=== PATIENT | male | born 1975 ===

== ENCOUNTER 2019-08-08 15:04 | Emergency (ER) | payer SELFPAY ==
[~2019-08-08 15:04] MED LIST: Iopamidol-370 76% 500 ML 1 ML ONE
[2019-08-08 15:35] LABS: #Basophils 0.1 thou/uL (0.0-0.2); #Eosinphils 0.1 thou/uL (0.0-0.7); #Lymphocytes 2.5 thou/uL (1.20-3.40); #Neutrophils 10.5 thou/uL (1.40-6.50); %Basophils 0.6 % (0.0-1.0); %Eosinophils 0.4 % (0.0-10.0); %Neutrophils 74.1 % (42.0-75.0); Hemoglobin 16.2 g/dL (12.0-16.0); Mean Corpuscular HGB CONC 34.3 g/dL (32.0-36.0); Mean Corpuscular Hemoglobin 31.2 pg (27.0-31.0); Mean Platelet Volume 8.1 fL (7.4-10.4); Platelet Count 322 thou/uL (130-400); RBC Distribution Width 11.3 % (11.5-14.5); Red Blood Cell (RBC) Count 5.21 mill/uL (4.20-5.40); White Blood Cell (WBC) Count 14.1 thou/uL (4.8-10.8)
[2019-08-08 15:56] LABS: ALT (SGPT) 29 U/L (8-55); AST (SGOT) 21 U/L (5-34); Albumin 4.3 g/dL (3.5-5.0); Alkaline Phosphatase 59 U/L (40-110); Anion Gap 15 mmol/L (10-20); BUN (Urea Nitrogen) 15 mg/dL (7.0-18.7); Bilirubin, Total 0.4 mg/dL (0.2-1.2); Calc. Creatinine Clearance 0 mL/min (70-130); Calcium 9.5 mg/dL (7.8-10.44); Carbon Dioxide 24 mmol/L (22-29); Chloride 105 mmol/L (98-107); Estimated GFR-MDRD 61; Globulin 2.9 g/dL (2.4-3.5); Glucose 101 mg/dL (70-105); Potassium 4.3 mmol/L (3.5-5.1); Protein, Total 7.2 g/dL (6.0-8.3); Sodium 140 mmol/L (136-145)
--- NOTE | 2019-08-08 15:58 | RAD ---
CHEST 1 VIEW: Date: 08/08/2019 HISTORY: Dyspnea, shortness of breath, chest tightness. FINDINGS: Heart size is within normal limits. The lungs are clear. No confluent pneumonia, overt edema, or pleu ral effusion. IMPRESSION: No significant acute intrathoracic disease. POS: [facility]
--- NOTE | 2019-08-08 15:59 | CT ---
CT ANGIO OF CHEST PERFORMED WITH IV CONTRAST ENHANCEMENT WITH 3D RECONSTRUCTIONS: Date: 08/08/2019 HISTORY: Shortness of breath. Chest tightness. FINDINGS: The lungs are clear of any infiltrates. Calcified granuloma is seen in the left lower lobe. No significant mediastinal, hilar, or axillary adenopathy. Thoracic aorta is normal in caliber. There is fair pulmonary artery opacification. There is some wayne on artifact which does degrade detail. Visualized liver parenchyma is unremarkable. IMPRESSION: No CT evidence for pulmonary embolus. POS: [facility]
[2019-08-08 16:16] LABS: Amphetamine Not Detected (NotDetected); Barbiturates Screen Not Detected (NotDetected); Benzodiazepine Screen Not Detected (NotDetected); Cocaine Metabolite Screen Not Detected (NotDetected); Medtox Control Line Valid? VALID (VALID); Medtox Reader # READER 4; Methadone Not Detected (NotDetected); Methamphetamine Not Detected (NotDetected); Opiate Screen Not Detected (NotDetected); Oxycodone Screen Not Detected (NotDetected); Phencyclidine (PCP) Not Detected (NotDetected); THC/Cannabinoid Screen Not Detected (NotDetected); Tricyclic Screen Not Detected (NotDetected)
== END 2019-08-08 16:32 | disposition home or self-care (01) ==
LOC: EDSEX 15:04 → ERS 15:04
DX: F41.1 Generalized anxiety disorder (principal); R07.9 Chest pain, unspecified; R06.02 Shortness of breath; E78.5 Hyperlipidemia, unspecified; E78.00 Pure hypercholesterolemia, unspecified; I10 Essential (primary) hypertension; Z79.899 Other long term (current) drug therapy
CPT/HCPCS: 36415; 71045; 71275; 80053; 80306; 83880; 84484; 85025; 93005; Q9967